=== PATIENT | female | born 1980 | race Caucasian/White ===

== ENCOUNTER 2016-05-05 08:16 | Emergency (ER) ==
[2016-05-05 08:21] VITALS: BP 125/85; TEMP 96.9; BMI 32.8
--- NOTE | 2016-05-05 08:31 | ED.PDOC ---
General ED Provider: Dr. LESLYE RODRIGUEZ Chief Complaint: Foot Pain/Injury Stated Complaint: foot hurts X 1 month; worse when first standing up after sitting. No prior injury related. Hx 2 ankle fractures - lateral and medial not recent. Time Seen by Physician: 08:27 Mode of Arrival: Walk-In Information Source: Patient Exam Limitations: No limitations [facility] Documentation Reviewed and Agree: Yes Review of Systems - Review Of Systems Constitutional: Reports: No symptoms Musculoskeletal: Reports: Other (Heel and lateral R foot) Skin: Reports: No symptoms All Other Systems: Reviewed and Negative Past Medical History - Past Medical History Previously Healthy: Yes Endocrine: Reports: None Cardiovascular: Reports: None Respiratory: Reports: None Hematological: Reports: None Gastrointestinal: Reports: None Genitourinary: Reports: None Neuro/Psych: Reports: Migraine (has seen neurologist CT 9-12 minths ago) Musculoskeletal: Reports: Back Pain (better after two rounds of physical therapy ) Cancer: Reports: None Last Menstrual Period: apr 02 2016 Other Pertinent Past Medical History: - Surgical History General Surgical History: Reports: - Family History Family History: Reports: None (no one else with headaches) - Social History Smoking Status: Current some day smoker Hx Substance Use: No Alcohol Screening: None Physical Exam - Physical Exam Appearance: Well-appearing Musculoskeletal: Normal strength, ROM intact, No edema, No calf tenderness Skin: Warm, Dry, Normal color Neurological: Sensation intact, Motor intact, Alert, Oriented Psychiatric: Affect appropriate, Mood appropriate Interpretation - Radiology Interpretation Radiology Interpretation By: ED Physician Radiology Results: Negative Xray Comments: No fx/dislocaton small heel spur Critical Care Note - Critical Care Note Total Time (mins): 10 Course - Course Orders, Labs, Meds: Orders Category Date Time Status FOOT, RIGHT 3 VIEWS Stat RADS 05/05/16 08:32 Ordered Vital Signs: Temp Pulse Resp BP Pulse Ox 05/05/16 08:18 96.9 F L 79 14 125/85 98 Departure - Departure Time of Disposition: 09:07 Disposition: HOME SELF-CARE Discharge Problem: Plantar fasciitis of right foot Instructions: Plantar Fasciitis (ED) Condition: Good Pt referred to PMD for follow-up: Yes (Follow up with primary care - clinic) Additional Instructions: Anti inflammatory such as Ibuprofen; follow up with primary care or a [employer] studies professor. Allergies/Adverse Reactions: Allergies No Known Allergies Allergy (Unverified 05/05/16 08:21) Home Medications: Ambulatory Orders Sumatriptan Succinate [Imitrex] 25 mg PO ONCE PRN #10 tablet 03/10/15 Disposition Discussed With: Patient (Discussed xrays; follow up with clinic - antiinflammatories)
--- NOTE | 2016-05-05 09:00 | DI ---
EXAM: Right foot three view HISTORY: Pain, heel and lateral foot COMPARISON: None FINDINGS: No fracture or dislocation. The joints are normal. Small plantar calcaneal spur and mild posterior calcaneal enthesopathy. IMPERSSION: 1. No fracture or dislocation. 2. Plantar calcaneal spurs
== END 2016-05-05 09:16 | disposition home or self-care (01) ==
LOC: ED 08:16
DX: M72.2 Plantar fascial fibromatosis (principal); F17.210 Nicotine dependence, cigarettes, uncomplicated
CPT/HCPCS: 99283

== ENCOUNTER 2016-05-26 13:34 | Outpatient (CLI) ==
[2016-05-26 18:09] LABS: FLU INTERNAL QC INTERNAL QC VALID; RAPID FLU A NEGATIVE (NEGATIVE); RAPID FLU B NEGATIVE (NEGATIVE)
== END 2016-05-26 13:35 | disposition home or self-care (01) ==
LOC: LAB 13:34
PROVIDERS: ATTEND Nurse Practitioner Family
DX: R11.2 Nausea with vomiting, unspecified (principal)
CPT/HCPCS: 87651; 87804; 87880